=== PATIENT | male | born 1955 | race Caucasian/White ===

== ENCOUNTER 2021-05-28 08:34 | Emergency (ER) | payer MEDICARE ==
[~2021-05-28] VITALS: Ht 170.2 cm; Wt 89.9 kg
[2021-05-28] MEDS ORDERED: INVOKAMET1 TAB PO (08:48)
[2021-05-28] MEDS ORDERED: DAILY VALUE1 EACH PO (08:49)
[2021-05-28] MEDS ORDERED: BENAZEPRIL10 MG PO (08:49)
[2021-05-28 09:56] LABS: BASO # 0.05 K/mm3 (0.02-0.10); EOS # 0.11 K/mm3 (0.04-0.40); EOS % 1.6 % (0.0-4.0); HEMATOCRIT 47.2 % (42.0-52.0); HEMOGLOBIN 16.2 g/dL (13.5-18.0); MEAN CELL VOLUME 93 fl (78-100); MEAN CORPUSCULAR HEMOGLOBIN 32 pg (27-31); MEAN CORPUSCULAR HGB CONC 34 g/dL (33-37); MEAN PLATELET VOLUME 9.8 fl (7.4-10.4); MONO # 0.47 K/mm3 (0.20-0.80); NEU # 3.93 K/mm3 (1.40-6.50); PLATELET COUNT 208 K/mm3 (130-400); RED CELL DISTRIBUTION WIDTH 12.4 % (11.5-14.5); WHITE BLOOD COUNT 7.1 K/mm3 (4.8-10.8)
[2021-05-28 09:57] LABS: PROTHROMBIN TIME 9.8 SECONDS (9.0-12.0)
[2021-05-28 10:01] LABS: ALBUMIN 3.9 g/dL (3.4-4.8); POTASSIUM 4.8 mmol/L (3.5-5.1); SODIUM 139 mmol/L (136-145)
[2021-05-28 10:02] LABS: CALCIUM 9.6 mg/dL (8.3-10.5)
[2021-05-28 10:03] LABS: GLUCOSE 245 mg/dL (75-110)
[2021-05-28 10:04] LABS: TOTAL PROTEIN 7.2 g/dL (6.2-8.1)
[2021-05-28 10:05] LABS: CARBON DIOXIDE 25 mmol/L (23-31); TOTAL BILIRUBIN 0.6 mg/dL (0.2-1.2)
[2021-05-28 10:09] LABS: AST-SGOT 17 U/L (5-34)
[2021-05-28 10:10] LABS: ALT/SGPT 22 U/L (0-55)
[2021-05-28 10:18] LABS: TROPONIN-I < 0.03 ng/mL (<0.030)
[2021-05-28 11:53] VITALS: BP 164/79
[2021-05-29] MEDS ORDERED: ASPIRIN E.C. 8181 MG PO (19:08)
[2021-05-29] MEDS ORDERED: CLOPIDOGREL PO (19:08)
[2021-05-29] MEDS ORDERED: AMLODIPINE BESYL5 MG PO (19:09)
[2021-06-01 12:48] LABS: URINE APPEARANCE HAZY; URINE COLOR YELLOW; URINE KETONE NEGATIVE (NEGATIVE); URINE PROTEIN(semi-quant) 3+ mg/dL (NEGATIVE)
[2021-06-01 12:49] LABS: URINE BILIRUBIN 1+ (NEGATIVE); URINE BLOOD TRACE (NEGATIVE); URINE LEUKOCYTE ESTERASE NEGATIVE (NEGATIVE); URINE NITRATE NEGATIVE (NEGATIVE); URINE UROBILINOGEN NORMAL (NORMAL); URINE WBC 0-1 /hpf (0-3)
[2021-06-01 12:50] LABS: URINE MUCUS PRESENT (NOT PRESENT)
== END 2021-05-28 12:14 | disposition other institution (70) ==
LOC: ED 08:34
PROVIDERS: Nurse Practitioner
DX: I63.9 Cerebral infarction, unspecified (principal); I10 Essential (primary) hypertension; E11.9 Type 2 diabetes mellitus without complications; F17.210 Nicotine dependence, cigarettes, uncomplicated; Z20.822 Contact with and (suspected) exposure to COVID-19
CPT/HCPCS: J7030

== ENCOUNTER → 2021-05-31 | Outpatient (CLI) | payer MEDICARE ==
[~2021-05-31] MED LIST: AMLODIPINE BESYL5 MG PO; ASPIRIN E.C. 8181 MG PO; BENAZEPRIL10 MG PO; CLOPIDOGREL PO; DAILY VALUE1 EACH PO; INVOKAMET1 TAB PO
== END ==
LOC: RAD 07:08
DX: R13.10 Dysphagia, unspecified (principal)

== ENCOUNTER → 2021-06-01 | Outpatient (CLI) | payer MEDICARE | LOC: RAD 09:46 | DX: R13.10 Dysphagia, unspecified (principal) ==

== ENCOUNTER 2021-08-24 13:43 | Outpatient (RCR) | payer MEDICARE | END 2021-08-30 | disposition home or self-care (01) | LOC: PT | DX: Z86.73 Personal history of transient ischemic attack (TIA), and cerebral infarction without residual deficits (principal) ==

== ENCOUNTER 2021-09-03 09:00 | Outpatient (RCR) | payer MEDICARE | END 2021-09-27 | disposition still patient (30) | LOC: PT | DX: Z86.73 Personal history of transient ischemic attack (TIA), and cerebral infarction without residual deficits (principal) ==